=== PATIENT | female | born 1960 | race Caucasian/White ===

== ENCOUNTER 2024-01-24 14:34 | Inpatient (IN) | payer BC ==
[~2024-01-24] VITALS: Ht 167.6 cm; Wt 59.0 kg
[2024-01-24 14:44] VITALS: BP_SYST 139; PULSE 77; RESP 18; TEMP 98.3; O2SAT 98
[2024-01-24 15:49] LABS: BASOPHILS # (AUTO) 0.1 K/uL (0.0-0.2); BASOPHILS % (AUTO) 1.7 % (0.0-2.0); EOSINOPHILS # (AUTO) 0.1 K/uL (0.0-0.4); EOSINOPHILS % (AUTO) 1.7 % (0.0-4.0); LYMPHOCYTES # (AUTO) 1.3 K/uL (1.0-5.5); LYMPHOCYTES % (AUTO) 29.9 % (20.5-51.5); MEAN CORPUSCULAR HEMOGLOBIN 16 pg (27-31); MEAN CORPUSCULAR HGB CONC 29 % (32-36); MEAN CORPUSCULAR VOLUME 55 fL (79.0-98.0); MONOCYTES # (AUTO) 0.4 K/uL (0.0-1.0); MONOCYTES % (AUTO) 8.3 % (1.7-9.3); NEUTROPHILS # (AUTO) 2.6 K/uL (1.8-7.7); NEUTROPHILS % (AUTO) 58.4 % (40.0-70.0); PLATELET COUNT (AUTO) 446 K/uL (130-430); RED BLOOD CELL COUNT(AUTO) 3.55 MIL/uL (4.2-6.2); RED CELL DISTRIBUTION WIDTH 21.3 % (9.0-15.0); WHITE BLOOD COUNT (AUTO) 4.5 K/uL (4.8-10.8)
[2024-01-24] MEDS: NACL 0.9% 1,000 ML IV ONE (15:52)
[2024-01-24 16:02] LABS: HEMOGLOBIN 5.7 g/dL (12.0-16.0)
[2024-01-24 16:03] LABS: HEMATOCRIT 19.6 % (36-48)
[2024-01-24 16:09] LABS: ANION GAP 10 (5-15); CALCIUM 8.7 mg/dL (8.4-11.0); CARBON DIOXIDE 21 mmol/L (23-29); CHLORIDE 106 mmol/L (98-107); CREATININE 0.58 mg/dL (0.55-1.30); GFR AFRICAN AMERICAN 135 mL/min (>90); GFR NON AFRICAN-AMERICAN 112 mL/min (>90); GLUCOSE 95 mg/dL (74-106); POTASSIUM 4.5 mmol/L (3.5-5.1); SODIUM SERUM 137 mmol/L (136-145); UREA NITROGEN, BLOOD 9 mg/dL (8-21)
[2024-01-24 17:49] LABS: PROTHROMBIN TIME 10.4 SECS (9.5-12.5)
[2024-01-24 18:16] LABS: ANISOCYTOSIS 3+; HYPOCHROMASIA 3+; OVALOCYTES MODERATE; STOMATOCYTES FEW; TARGET CELLS FEW; TEAR DROP CELLS FEW
[2024-01-24] MEDS: PANTOPRAZOLE SODIUM 40 MG/VIAL (PROTONIX) IVP ONE (19:28)
[2024-01-24 19:30] VITALS: BP_SYST 112; PULSE 71; RESP 18; TEMP 98.3; O2SAT 99
[2024-01-24 20:00] VITALS: BP_SYST 112; PULSE 71; RESP 18; TEMP 98.3; O2SAT 99
[2024-01-24] MEDS ORDERED: ACETAMINOPHEN 325 MG TABLET PO PRN (22:15)
[2024-01-24] MEDS ORDERED: ONDANSETRON HCL 4 MG/2 ML VIAL IVP PRN (22:15)
[2024-01-24] MEDS ORDERED: SOD FERRIC GLUC COMPLEX/SUC 125 MG in NS 100 ML IV SCH (22:15)
[2024-01-24] MEDS ORDERED: TEMAZEPAM 15 MG CAPSULE PO PRN (22:15)
[2024-01-25 04:00] VITALS: BP_SYST 115; PULSE 62; RESP 18; TEMP 97.9; O2SAT 98
[2024-01-25] MEDS: SOD FERRIC GLUC COMPLEX/SUC 62.5 MG/5 ML VIAL (FERRLECIT) IV ONE (06:03)
[2024-01-25] MEDS: SOD FERRIC GLUC COMPLEX/SUC 125 MG in NS 100 ML IV SCH (06:04)
[2024-01-25 08:01] VITALS: BP_SYST 124; PULSE 70; RESP 17; TEMP 98.3; O2SAT 99
[2024-01-25 08:05] LABS: BASOPHILS # (AUTO) 0.1 K/uL (0.0-0.2); BASOPHILS % (AUTO) 1.2 % (0.0-2.0); EOSINOPHILS # (AUTO) 0.1 K/uL (0.0-0.4); EOSINOPHILS % (AUTO) 2.2 % (0.0-4.0); HEMATOCRIT 28.9 % (36-48); HEMOGLOBIN 8.8 g/dL (12.0-16.0); LYMPHOCYTES # (AUTO) 1.8 K/uL (1.0-5.5); LYMPHOCYTES % (AUTO) 31.4 % (20.5-51.5); MEAN CORPUSCULAR HEMOGLOBIN 20 pg (27-31); MEAN CORPUSCULAR HGB CONC 31 % (32-36); MEAN CORPUSCULAR VOLUME 64 fL (79.0-98.0); MONOCYTES # (AUTO) 0.5 K/uL (0.0-1.0); MONOCYTES % (AUTO) 8.9 % (1.7-9.3); NEUTROPHILS # (AUTO) 3.2 K/uL (1.8-7.7); NEUTROPHILS % (AUTO) 56.3 % (40.0-70.0); PLATELET COUNT (AUTO) 392 K/uL (130-430); RED BLOOD CELL COUNT(AUTO) 4.49 MIL/uL (4.2-6.2); RED CELL DISTRIBUTION WIDTH 29.9 % (9.0-15.0); WHITE BLOOD COUNT (AUTO) 5.7 K/uL (4.8-10.8)
[2024-01-25] MEDS: MULTIVITAMINS TAB 1 TABLET PO SCH (08:06)
[2024-01-25] MEDS: PANTOPRAZOLE SODIUM 40 MG/VIAL (PROTONIX) IVP SCH (08:07)
[2024-01-25 08:15] LABS: ALBUMIN 3.3 g/dL (3.4-4.8); CALCIUM 8.3 mg/dL (8.4-11.0); CREATININE 0.72 mg/dL (0.55-1.30); POTASSIUM 4.1 mmol/L (3.5-5.1); TOTAL BILIRUBIN 2.9 mg/dL (0.0-1.0); TOTAL PROTEIN, SERUM 6.8 g/dL (6.4-8.3)
[2024-01-25] MEDS: CYANOCOBALAMIN 1000 MCG/ML VIAL IM ONE (10:58)
[2024-01-25 12:15] VITALS: BP_SYST 122; PULSE 78; RESP 18; TEMP 97.5; O2SAT 98
[2024-01-25 17:22] VITALS: BP_SYST 140; PULSE 77; RESP 18; TEMP 98.6; O2SAT 98
== END 2024-01-25 17:45 | disposition home or self-care (01) | DRG 812 ==
LOC: SED 14:34 → STU 16:55
PROVIDERS: ADMIT Internal Medicine; ATTEND Internal Medicine
PROC: 30233N1 Transfusion of Nonautologous Red Blood Cells into Peripheral Vein, Percutaneous Approach (ICD-10-PCS; principal; 2024-01-24)
DX: D50.9 Iron deficiency anemia, unspecified (principal); Z90.710 Acquired absence of both cervix and uterus
CPT/HCPCS: 36415; 71045; 71250-TC; 80048; 80053; 83880; 84484; 85025; 85610; 85730; 86886; 86900; 86901; 86920; 93005; 96374; 99285; C9113; G0378; J2916; J3420; P9021; Q9967